=== PATIENT | male | born 2000 | race African-American/Black ===

== ENCOUNTER 2022-01-02 10:14 | Emergency (ER) | payer OTHER ==
[~2022-01-02] VITALS: Ht 175.3 cm; Wt 75.7 kg
[2022-01-02 10:15] VITALS: BP 137/78
[2022-01-02] MEDS ORDERED: LIDOCAINE 1% SDV 5ML VIAL DILUENT ONE (11:50)
[2022-01-02] MEDS ORDERED: cefTRIAXone 500MG VIAL (J0696 PER 250MG) IM ONE (11:50)
[2022-01-02] MEDS ORDERED: DOXY-443 PO (11:53)
[2022-01-02 12:57] LABS: GC DNA AMPLIFICATION NEGATIVE (NEGATIVE)
== END 2022-01-02 12:24 | disposition home or self-care (01) ==
LOC: M ED 10:14
DX: N34.1 Nonspecific urethritis (principal); F17.200 Nicotine dependence, unspecified, uncomplicated
CPT/HCPCS: 81001; 87086; 87661; 87810; 87850; 96372; 99282; J0696

== ENCOUNTER 2022-02-21 13:52 | Emergency (ER) | payer OTHER ==
[~2022-02-21] VITALS: Ht 175.3 cm; Wt 75.0 kg
[~2022-02-21 13:52] MED LIST: DOXY-443 PO
[2022-02-21] MEDS ORDERED: DOXYCYCLINE HYCLATE 100MG TABLET PO ONE (15:55)
[2022-02-21] MEDS ORDERED: cefTRIAXone 500MG VIAL (J0696 PER 250MG) IM ONE (15:55)
[2022-02-21] MEDS ORDERED: LIDOCAINE 1% SDV 5ML VIAL DILUENT ONE (15:55)
[2022-02-21] MEDS ORDERED: DOXY-443 PO (15:59)
[2022-02-21 16:05] VITALS: BP 121/58
[2022-02-21 16:29] LABS: GC DNA AMPLIFICATION NEGATIVE (NEGATIVE)
== END 2022-02-21 16:19 | disposition home or self-care (01) ==
LOC: M ED 13:52
DX: Z20.2 Contact with and (suspected) exposure to infections with a predominantly sexual mode of transmission (principal)
CPT/HCPCS: 81001; 87661; 87810; 87850; 96372; 99283; J0696

== ENCOUNTER 2022-03-20 22:59 | Emergency (ER) | payer OTHER ==
[~2022-03-20] VITALS: Ht 175.3 cm; Wt 75.0 kg
[2022-03-20 22:59] VITALS: BP 143/71
[2022-03-21 01:00] LABS: GC DNA AMPLIFICATION NEGATIVE (NEGATIVE)
== END 2022-03-21 01:42 | disposition home or self-care (01) ==
LOC: M ED 22:59
DX: R36.9 Urethral discharge, unspecified (principal); R30.0 Dysuria; F17.200 Nicotine dependence, unspecified, uncomplicated

== ENCOUNTER → 2022-04-01 | Outpatient (REF) | payer OTHER ==
[2022-04-01 21:53] LABS: GC DNA AMPLIFICATION NEGATIVE (NEGATIVE)
== END ==
LOC: M WUC 19:54
PROVIDERS: ATTEND Student in an Organized Health Care Education/Training Program
DX: A64 Unspecified sexually transmitted disease (principal)